=== PATIENT | female | born 1955 | race African-American/Black ===

== ENCOUNTER 2022-10-23 18:57 | Emergency (ER) | payer BC, MEDICAID ==
[~2022-10-23] VITALS: Ht 172.7 cm; Wt 109.0 kg
[~2022-10-23 18:57] MED LIST: FLUO40CA8 PO; LAM1 PO
[2022-10-23 19:05] VITALS: BP 145/69
[2022-10-23] MEDS ORDERED: ACETAMINOPHEN 325MG TABLET PO STA (23:16)
[2022-10-23] MEDS ORDERED: SODIUM CHLORIDE 0.9% 1,000 ML IV ONE (23:30)
[2022-10-23 23:32] LABS: CLARITY URINE CLEAR (CLEAR); COLOR URINE YELLOW (YELLOW); KETONES URINE TRACE (NEGATIVE); LEUKOCYTE ESTERASE URINE 1+ (NEGATIVE); NITRITE URINE NEGATIVE (NEGATIVE); OCCULT BLOOD URINE NEGATIVE (NEGATIVE); PH URINE 5.5 (4.5-8.0); PROTEIN URINE NEGATIVE (NEGATIVE); SPECIFIC GRAVITY URINE 1.023 (1.005-1.030)
== END 2022-10-24 00:31 | disposition home or self-care (01) ==
LOC: ER 18:57
DX: M79.89 Other specified soft tissue disorders (principal); E03.9 Hypothyroidism, unspecified
CPT/HCPCS: 36415; 81003; 85379; 99283; J7030

== ENCOUNTER 2022-10-26 05:40 | Emergency (ER) | payer BC ==
[~2022-10-26] VITALS: Ht 172.7 cm; Wt 100.0 kg
[2022-10-26 05:49] VITALS: BP 120/51
[2022-10-26] MEDS ORDERED: PREDNISONE 20MG TABLET PO STA (06:16)
[2022-10-26] MEDS ORDERED: ALBUTEROL (0.083%) 2.5MG/3ML NEB HHN STA (06:16)
[2022-10-26 09:25] LABS: BASOPHILS % 0.3 % (0.0-2.0); HEMOGLOBIN. 10.2 g/dL (12.0-16.0); LYMPHOCYTES % 9.1 % (20.0-50.0); MEAN CORPUSCULAR HEMOGLOBIN 30.2 pg (28.0-32.0); MEAN CORPUSCULAR VOLUME 91.6 fL (81.0-99.0); MEAN PLATELET VOLUME 7.5 fl (7.4-10.4); MONOCYTES % 5.2 % (2.0-8.0); NEUTROPHILS % 85.4 % (40.0-76.0); PLATELET 193 x1000/uL (130-400); RED BLOOD CELL COUNT 3.39 mill/uL (4.2-5.4); RED CELL DISTRIBUTION WIDTH 15.7 % (11.6-14.6)
[2022-10-26 09:33] LABS: CHLORIDE 108 mEq/L (98-107)
[2022-10-26] MEDS ORDERED: P50 MT (10:05)
[2022-10-26] MEDS ORDERED: ALBU6.7H3 INH (10:05)
== END 2022-10-26 10:28 | disposition home or self-care (01) ==
LOC: ER 05:40 → CANBEDREQ 20:55
DX: J45.901 Unspecified asthma with (acute) exacerbation (principal)
CPT/HCPCS: 36415; 71045; 80053; 83880; 84484; 85025; 93005; 94640; 99285; J7512; Z7610

== ENCOUNTER 2022-10-28 16:09 | Emergency (ER) | payer BC ==
[~2022-10-28] VITALS: Ht 162.6 cm; Wt 99.0 kg
[~2022-10-28 16:09] MED LIST changes: +ALBU6.7H3 INH; +P50 MT
[2022-10-28 16:27] VITALS: BP 110/80
[2022-10-28] MEDS ORDERED: IPRATROPIUM BROMIDE (0.02%) 0.5MG/2.5ML NEB HHN STA (16:33)
[2022-10-28] MEDS ORDERED: ALBUTEROL (0.083%) 2.5MG/3ML NEB HHN STA (16:33)
[2022-10-28 17:06] LABS: BASOPHILS % 0.1 % (0.0-2.0); HEMATOCRIT. 33.9 % (36.0-48.0); HEMOGLOBIN. 11.2 g/dL (12.0-16.0); LYMPHOCYTES % 20.4 % (20.0-50.0); MEAN CORPUSCULAR HEMOGLOBIN 30.3 pg (28.0-32.0); MEAN CORPUSCULAR VOLUME 91.8 fL (81.0-99.0); MEAN PLATELET VOLUME 7.8 fl (7.4-10.4); MONOCYTES % 8.5 % (2.0-8.0); PLATELET 198 x1000/uL (130-400); RED BLOOD CELL COUNT 3.69 mill/uL (4.2-5.4)
[2022-10-28 17:16] LABS: CHLORIDE 109 mEq/L (98-107)
== END 2022-10-28 19:19 | disposition left against medical advice (07) ==
LOC: ER 16:09
DX: J10.1 Influenza due to other identified influenza virus with other respiratory manifestations (principal); R53.1 Weakness; R42 Dizziness and giddiness; J45.909 Unspecified asthma, uncomplicated; E03.9 Hypothyroidism, unspecified; E11.9 Type 2 diabetes mellitus without complications
CPT/HCPCS: 36415; 71045; 80053; 83880; 84484; 85025; 93005; 99285